=== PATIENT | female | born 1950 | race Caucasian/White ===

== ENCOUNTER 2016-09-13 14:06 | Emergency (ER) | payer MEDICARE, OTHER ==
[2016-09-13 14:22] VITALS: BP 120/63
--- NOTE | 2016-09-13 15:36 | UC ---
[facility] General HPI - HPI Summary HPI Summary: compalint of rash on the back of her head that started approx 2weeks ago rash is itchy no open area or drainage- feels dry and scaly tried essential oils , colloidal oatmeal denies fever and chills denies any new use of detergents, soaps,food or medications - History of Current Complaint Chief Complaint: [employer] Stated Complaint: SKIN COMPLAINT Time Seen by Provider: 09/13/16 15:28 Hx Obtained From: Patient - Allergy/Home Medications Allergies/Adverse Reactions: Allergies Allergy/AdvReac Type Severity Reaction Status Date / Time Aspirin Allergy Mild Hives Verified 09/13/16 14:22 Sulfa Drugs Allergy Mild Hives Verified 09/13/16 14:22 PMH/Surg Hx/FS Hx/Imm Hx Previously Healthy: Yes - Surgical History Surgical History: Yes Surgery Procedure, Year, and Place: ; right axillary dissection for benign with lymph nodes 2011 - Family History Known Family History: Negative: Cardiac Disease, Hypertension, Diabetes - Social History Lives: With Family Alcohol Use: None Substance Use Type: None Smoking Status (MU): Never Smoked Tobacco Review of Systems Constitutional: Negative Skin: Rash Eyes: Negative ENT: Negative Respiratory: Negative Cardiovascular: Negative Gastrointestinal: Negative Genitourinary: Negative Motor: Negative Neurovascular: Negative Musculoskeletal: Negative Neurological: Negative Psychological: Negative All Other Systems Reviewed And Are Negative: Yes Physical Exam Triage Information Reviewed: Yes Appearance: No Pain Distress, Well-Nourished Vital Signs: Initial Vital Signs Temp 98.2 F 09/13/16 14:15 Pulse 73 09/13/16 14:15 Resp 16 09/13/16 14:15 BP 120/63 09/13/16 14:15 Pulse Ox 100 09/13/16 14:15 Vital Signs Reviewed: Yes Eyes: Positive: Conjunctiva Clear ENT: Positive: Pharynx normal, TMs normal Neck: Positive: Supple Respiratory: Positive: Lungs clear, Normal breath sounds, No respiratory distress, No accessory muscle use Cardiovascular: Positive: RRR, No Murmur, Pulses Normal Abdomen Description: Positive: Nontender, Soft Bowel Sounds: Positive: Present Neurological: Positive: Alert Psychological: Positive: Normal Response To Family, Age Appropriate Behavior Skin: Positive: rashes - back of his neck 4x4cm raised erythematous area with raised edges and clearer center Course/Dx - Differential Dx - Multi-Symptom Differential Diagnoses: Other - cellulitis, tinea, contact dermatitis Provider Diagnoses: tinea Discharge - Discharge Plan Condition: Stable Disposition: HOME Prescriptions: Clotrimazole/Betamethasone* [Lotrisone Cream*] 1 applic TOPICAL BID #1 tube Patient Education Materials: Tinea Corporis (ED) Referrals: Tiffani Albright MD [Primary Care Provider] - Additional Instructions: Please start lotrisone as directed Increase fluids and rest Take acetaminophen or ibuprofen for fever or pain Please review your discharge instructions. If your symptoms do not improve please call your primary care provider or return to urgent care.
== END 2016-09-13 15:49 | disposition home or self-care (01) ==
LOC: UCCORT 14:06
DX: B35.0 Tinea barbae and tinea capitis (principal)
CPT/HCPCS: 99212; G0463